=== PATIENT | female | born 1950 ===

== ENCOUNTER 2021-06-08 07:39 | Day surgery (SDC) | payer OTHER ==
[~2021-06-08 07:39] MED LIST: COUMADIN; COZAAR100 MG; NEURONTIN300 MG; ZOCOR40 MG
== END 2021-06-08 12:15 | disposition home or self-care (01) ==
LOC: CIR.AMB 07:39
PROVIDERS: ATTEND Surgery Surgery of the Hand
DX: D21.11 Benign neoplasm of connective and other soft tissue of right upper limb, including shoulder (principal); D48.1 Neoplasm of uncertain behavior of connective and other soft tissue; Z20.822 Contact with and (suspected) exposure to COVID-19